=== PATIENT | female | born 1945 | race Caucasian/White ===

== ENCOUNTER 2017-09-24 10:15 | Emergency (ER) | payer OTHER ==
[~2017-09-24] VITALS: Ht 149.9 cm; Wt 50.8 kg
[2017-09-24 10:26] VITALS: Ht 149.9 cm; Wt 50.8 kg
[2017-09-24 13:24] VITALS: BP 143/67
== END 2017-09-24 13:24 | disposition home or self-care (01) ==
LOC: ED 10:15
PROC: 3E023NZ Introduction of Analgesics, Hypnotics, Sedatives into Muscle, Percutaneous Approach (ICD-10-PCS; principal; 2017-09-24)
DX: M25.511 Pain in right shoulder (principal); E11.9 Type 2 diabetes mellitus without complications; I10 Essential (primary) hypertension; E78.00 Pure hypercholesterolemia, unspecified
CPT/HCPCS: J1885; Q0092